=== PATIENT | male | born 1975 | race Caucasian/White ===

== ENCOUNTER 2024-05-22 11:12 | Inpatient (IN) | payer BC ==
[2024-05-22 12:03] LABS: BASOPHILS PERCENT AUTO 0.1 % (0.0-1.0); HEMATOCRIT 36.6 % (42.0-52.0); HEMOGLOBIN 12.7 gm/dl (14.0-18.0); IMMATURE GRAN ABSOLUTE AUTO 0.75 K/mm3 (0.00-0.05); IMMATURE GRAN PERCENT AUTO 4.8 % (0.0-0.4); LYMPHOCYTES ABSOLUTE AUTO 0.5 K/mm3 (1.0-4.8); LYMPHOCYTES PERCENT AUTO 3.3 % (24.0-44.0); MEAN CORPUSCULAR HEMOGLOBIN 28.7 pg (28.0-32.0); MEAN CORPUSCULAR HGB CONC 34.7 g/dl (32.0-36.0); MEAN CORPUSCULAR VOLUME 82.6 fl (83.0-99.0); MEAN PLATELET VOLUME 11.4 fl (9.4-12.4); MONOCYTES ABSOLUTE AUTO 1.2 K/mm3 (0.0-0.8); MONOCYTES PERCENT AUTO 7.9 % (0.0-8.0); NEUTROPHILS ABSOLUTE AUTO 13.1 K/mm3 (1.8-7.7); NEUTROPHILS PERCENT AUTO 83.9 % (41.0-71.0); PLATELET COUNT,PLT 295 K/mm3 (150-400); RED BLOOD CELL COUNT 4.43 M/mm3 (4.52-5.90); WHITE BLOOD CELL COUNT,WBC 15.59 K/mm3 (3.9-11.3)
[2024-05-22 12:21] LABS: A/G RATIO 0.4 (1-2); ALBUMIN 2.1 g/dl (3.4-5.0); ANION GAP 14.3 (5-15); BILIRUBIN TOTAL 1.9 mg/dL (0.2-1.0); BUN/CREATININE RATIO 13.1 (14-18); C-REACTIVE PROTEIN 20.44 mg/dL (<0.30); CALCIUM 8.6 mg/dL (8.5-10.1); CREATININE 1.3 mg/dL (0.7-1.3); EST CRCL DRUG DOSING (CG) 76.27 mL/min; MAGNESIUM 1.9 mg/dL (1.8-2.4); POTASSIUM,K 3.3 mEq/L (3.5-5.1); PROTEIN TOTAL,TP 7.6 g/dl (6.4-8.2)
[2024-05-22] MEDS: Aspirin 81 MG Tab.Chew PO ONE (12:22)
[2024-05-22] MEDS: Metoprolol Tartrate 5 MG/5 ML SDV IVPUSH ONE (12:22)
[2024-05-22] MEDS ORDERED: Sodium Chloride 0.9% 100 ML IV SCH (12:30)
[2024-05-22] MEDS: Iopamidol 755 Mg/ML 100 ML Bottle IVPUSH ONE (12:34)
[2024-05-22] MEDS: Folic Acid 1 MG Tab PO ONE (13:20)
[2024-05-22] MEDS: Thiamine 100 MG in Sodium Chloride 0.9% 100 ML IV ONE (13:20)
[2024-05-22] MEDS: Sodium Chloride 0.9% 1,000 ML IV SCH (13:20)
[2024-05-22] MEDS: Piperacillin/Tazobactam 4.5 GM in Sodium Chloride 0.9% 100 ML IV ONE (13:43)
[2024-05-22] MEDS: Potassium Chloride 20 MEQ Tab.ER PO ONE ×2 (13:44→21:43)
[2024-05-22] MEDS ORDERED: Acetaminophen 325 MG Tab PO PRN (14:09)
[2024-05-22] MEDS ORDERED: Ondansetron 4 MG/2 ML SDV IV PRN (14:09)
[2024-05-22] MEDS ORDERED: LORazepam 2 MG/ML SDV IV PRN (14:13)
[2024-05-22] MEDS: Pantoprazole 40 MG Vial IVPUSH SCH (14:49)
[2024-05-22] MEDS: Potassium Chloride 10 MEQ in Premix Bag 1 BAG IV SCH (14:49)
[2024-05-22 14:56] LABS: APPEARANCE,URINE CLEAR (Clear); BILIRUBIN,URINE NEGATIVE (Negative); COLOR,URINE YELLOW (Yellow); GLUCOSE,URINE TRACE (Negative); KETONES,URINE NEGATIVE (Negative); LEUKOCYTE ESTERASE,URINE NEGATIVE (Negative); NITRITE,URINE NEGATIVE (Negative); OCCULT BLOOD,URINE 2+ (Negative); PROTEIN,URINE 3+ (Negative); UROBILINOGEN,URINE 0.2 (0.2-1.0)
[2024-05-22 14:58] LABS: BACTERIA,URINE FEW /hpf (FEW); MUCUS,URINE FEW /hpf (FEW); SQUAMOUS EPITHELIAL CELLS,UR 0-5 /hpf (0-5); WBC,URINE 0-5 /hpf (0-5)
[2024-05-22] MEDS: Metoprolol Tartrate 50 MG Tab PO ONE (15:00)
[2024-05-22] MEDS: Metoprolol Tartrate 5 MG in Sodium Chloride 0.9% 50 ML IV ONE (15:04)
[2024-05-22 15:18] LABS: SODIUM,URINE RANDOM < 5.0 mEq/L (40-220)
[2024-05-22 15:59] LABS: OSMOLALITY,URINE 216 mosm/kg (400-1100)
[2024-05-22] MEDS ORDERED: guaiFENesin/Dextromethorphan 100-10 MG/5 ML Soln 5 ML Cup PO PRN (18:24)
[2024-05-22 20:19] LABS: ANION GAP 11.5 (5-15); BUN/CREATININE RATIO 16.9 (14-18); CALCIUM 8.6 mg/dL (8.5-10.1); CREATININE 1.3 mg/dL (0.7-1.3); EST CRCL DRUG DOSING (CG) 76.27 mL/min; POTASSIUM,K 3.5 mEq/L (3.5-5.1)
[2024-05-22] MEDS: guaiFENesin/Dextromethorphan 100-10 MG/5 ML Soln 5 ML Cup PO PRN (20:34)
[2024-05-22] MEDS: Piperacillin/Tazobactam 4.5 GM in Water For Injection, Sterile 20 ML IV SCH (20:34)
[2024-05-22] MEDS: Metoprolol Tartrate 50 MG Tab PO SCH (20:34)
[2024-05-22] MEDS: Nicotine Polacrilex 2 MG Gum CHEW PRN (21:44)
[2024-05-23 05:42] LABS: HEMATOCRIT 33.9 % (42.0-52.0); HEMOGLOBIN 11.3 gm/dl (14.0-18.0); MEAN CORPUSCULAR HEMOGLOBIN 28.6 pg (28.0-32.0); MEAN CORPUSCULAR HGB CONC 33.3 g/dl (32.0-36.0); MEAN PLATELET VOLUME 11.8 fl (9.4-12.4); PLATELET COUNT,PLT 249 K/mm3 (150-400); RED BLOOD CELL COUNT 3.95 M/mm3 (4.52-5.90)
[2024-05-23 05:53] LABS: A/G RATIO 0.4 (1-2); ALBUMIN 1.7 g/dl (3.4-5.0); ANION GAP 12.2 (5-15); BILIRUBIN TOTAL 0.8 mg/dL (0.2-1.0); BUN/CREATININE RATIO 19.2 (14-18); C-REACTIVE PROTEIN 19.04 mg/dL (<0.30); CALCIUM 8.6 mg/dL (8.5-10.1); CREATININE 1.2 mg/dL (0.7-1.3); EST CRCL DRUG DOSING (CG) 82.63 mL/min; MAGNESIUM 2.6 mg/dL (1.8-2.4); POTASSIUM,K 3.2 mEq/L (3.5-5.1); PROTEIN TOTAL,TP 6.6 g/dl (6.4-8.2); TSH 1.396 uIU/mL (0.358-3.74)
[2024-05-23 06:02] LABS: MEAN CORPUSCULAR VOLUME 85.8 fl (83.0-99.0)
[2024-05-23] MEDS: Potassium Chloride 10 MEQ in Premix Bag 1 BAG IV SCH (06:48)
[2024-05-23] MEDS: Potassium Chloride 20 MEQ Tab.ER PO ONE (06:48)
[2024-05-23] MEDS: Thiamine 100 MG Tab PO SCH (08:07)
[2024-05-23] MEDS: Enoxaparin 40 MG/0.4 ML Syringe SUBCUT SCH (08:09)
[2024-05-23] MEDS ORDERED: Albuterol/Ipratropium 3.0-0.5 MG/3 ML Neb Soln NEB PRN (08:40)
[2024-05-23] MEDS: Piperacillin/Tazobactam 4.5 GM in Sodium Chloride 0.9% 100 ML IV SCH (14:25)
[2024-05-24 04:24] LABS: HEMATOCRIT 34.1 % (42.0-52.0); HEMOGLOBIN 11.1 gm/dl (14.0-18.0); MEAN CORPUSCULAR HEMOGLOBIN 28.5 pg (28.0-32.0); MEAN CORPUSCULAR HGB CONC 32.6 g/dl (32.0-36.0); MEAN CORPUSCULAR VOLUME 87.4 fl (83.0-99.0); MEAN PLATELET VOLUME 11.5 fl (9.4-12.4); PLATELET COUNT,PLT 311 K/mm3 (150-400); WHITE BLOOD CELL COUNT,WBC 10.14 K/mm3 (3.9-11.3)
[2024-05-24 04:45] LABS: A/G RATIO 0.3 (1-2); ALBUMIN 1.6 g/dl (3.4-5.0); ANION GAP 11.5 (5-15); BILIRUBIN TOTAL 0.4 mg/dL (0.2-1.0); BUN/CREATININE RATIO 18.2 (14-18); C-REACTIVE PROTEIN 10.08 mg/dL (<0.30); CALCIUM 8.3 mg/dL (8.5-10.1); CREATININE 1.1 mg/dL (0.7-1.3); EST CRCL DRUG DOSING (CG) 90.14 mL/min; MAGNESIUM 2.3 mg/dL (1.8-2.4); POTASSIUM,K 3.5 mEq/L (3.5-5.1); PROTEIN TOTAL,TP 6.4 g/dl (6.4-8.2)
[2024-05-24] MEDS: Metoprolol Tartrate 100 MG Tab PO SCH (08:30)
[2024-05-25 04:35] LABS: HEMATOCRIT 33.5 % (42.0-52.0); HEMOGLOBIN 10.8 gm/dl (14.0-18.0); MEAN CORPUSCULAR HGB CONC 32.2 g/dl (32.0-36.0); MEAN CORPUSCULAR VOLUME 86.8 fl (83.0-99.0); PLATELET COUNT,PLT 335 K/mm3 (150-400); RED BLOOD CELL COUNT 3.86 M/mm3 (4.52-5.90)
[2024-05-25 04:59] LABS: HEMOGLOBIN A1C 7.5 %
[2024-05-25 05:06] LABS: A/G RATIO 0.4 (1-2); ALBUMIN 1.7 g/dl (3.4-5.0); ANION GAP 9.2 (5-15); BILIRUBIN TOTAL 0.4 mg/dL (0.2-1.0); C-REACTIVE PROTEIN 5.34 mg/dL (<0.30); CALCIUM 8.4 mg/dL (8.5-10.1); EST CRCL DRUG DOSING (CG) 99.16 mL/min; MAGNESIUM 2.1 mg/dL (1.8-2.4); POTASSIUM,K 3.2 mEq/L (3.5-5.1); PROTEIN TOTAL,TP 6.2 g/dl (6.4-8.2)
[2024-05-25] MEDS: Potassium Chloride 20 MEQ Tab.ER PO ONE (06:50)
== END 2024-05-25 11:23 | disposition home or self-care (01) | DRG 720 ==
LOC: JD.ED 11:12 → JD.ICU 13:47
PROVIDERS: ADMIT Internal Medicine; ATTEND Internal Medicine
DX: A41.9 Sepsis, unspecified organism (principal); R65.20 Severe sepsis without septic shock; I50.21 Acute systolic (congestive) heart failure; J18.9 Pneumonia, unspecified organism; E87.1 Hypo-osmolality and hyponatremia; I48.91 Unspecified atrial fibrillation; F10.10 Alcohol abuse, uncomplicated; E87.6 Hypokalemia
CPT/HCPCS: 36415; 71045; 71045-26; 71275; 71275-26; 80048; 80053; 81001; 83036; 83605; 83735; 83880; 83930; 83935; 84300; 84443; 84484; 85025; 85027; 85379; 86140; 87040; 93005; 93010; 93306; 94762; 96365; 96375; 99285; 99285-25; A9270-GY; J1650; J2470; J2543; J3411; J3475; J3480; J3490; J7030; Q9967